=== PATIENT | female | born 1980 | race Caucasian/White ===

== ENCOUNTER 2022-07-30 23:11 | Emergency (ER) | payer OTHER, BC, SELFPAY ==
[2022-07-30 23:18] VITALS: BP 123/87; PULSE 87; RESP 16; TEMP 36.3; O2SAT 96
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
== END 2022-07-31 00:30 | disposition home or self-care (01) ==
PROVIDERS: Emergency Provider Physician Assistant
DX: S01.81XA Laceration without foreign body of other part of head, initial encounter (principal); W22.09XA Striking against other stationary object, initial encounter
CPT/HCPCS: 12011; 99283

== ENCOUNTER 2023-05-08 09:25 | Inpatient (IN) | payer BC, SELFPAY ==
[2023-05-08] VITALS (9 sets, daily range): BP systolic 109–149; BP diastolic 63–97; PULSE 79–100; RESP 14–24; TEMP 36.5–38.6; O2SAT 96–99
--- NOTE | ~2023-05-08 | CT_ITS ---
Clinical Indication: Dyspnea CT Scan of the Chest with Contrast: Technique: Contiguous sections were acquired throughout the chest after intravenous administration of 100 cc of Omnipaque 350. Dose reduction technique was used on this scan by utilizing automated expos ure control and iterative reconstruction technique. The dose-length product (DLP) was 452.55 mGy-cm. Findings: There is no evidence of any significant mediastinal, hilar or axillary lymphadenopathy. There is no f illing defect in the pulmonary arterial tree to suggest pulmonary embolus. There is no evidence of ao rtic dissection or aneurysm. No pericardial effusion. There are minimal bilateral pleural effusions, right greater than left. There is associated minimal b ibasilar atelectatic change. Images through the upper abdomen reveal no abnormalities. Impression: No evidence of pulmonary embolus, aortic dissection, or aortic aneurysm. Minimal bilateral pleural effusions, right greater than left, with associated minimal bibasilar atele ctasis. Reviewed, dictated and finalized at location M. Impression: No evidence of pulmonary embolus, aortic dissection, or aortic aneurysm. Minimal bilateral pleural effusions, right greater than left, with associated m inimal bibasilar atelectasis.
--- NOTE | ~2023-05-08 | XR_ITS ---
EXAMINATION: XR chest 2V DATE: 05/08/2023 10:53 INDICATION: Right-sided abdominal pain TECHNIQUE: PA and lateral views of the chest are obtained. COMPARISON: None available FINDINGS: The lungs are free of acute opacities. No pleural effusion or pneumothorax. The cardiomedia stinal silhouette is normal. The visualized bones and soft tissues are unremarkable. IMPRESSION: 1. No acute cardiopulmonary abnormality. Reviewed, dictated and finalized at location B.
--- NOTE | ~2023-05-08 | CT_ITS ---
EXAMINATION: CT abdomen pelvis w con INDICATION: Abdominal pain TECHNIQUE: Computed tomographic images of the abdomen and pelvis were obtained after the administrati on of 100 cc of Omnipaque 350 intravenous contrast. The dose-length product (DLP) was 630.22 mGy-cm. Automated exposure control and iterative reconstruction technique were employed. COMPARISON: None available FINDINGS: Minimal dependent atelectasis is present in the lung bases. The heart size is normal. The l iver is diffusely low in attenuation when compared with the spleen, consistent with hepatic steatosis . The spleen, pancreas, gallbladder, and adrenal glands are normal. The left kidney is unremarkable. There is mild left hydroureter with urothelial enhancement of the ureter and right renal pelvis. Ther e is patchy decreased perfusion of the right kidney compared to the left with an approximately 1.3 cm hypoattenuating lesion in the medial aspect of the right kidney lower pole. No pathologically enlarg ed abdominal or pelvic lymph nodes are identified. No free intraperitoneal gas or evidence of bowel o bstruction. An IUD is present in expected position. The appendix is normal. IMPRESSION: 1. Findings consistent with right-sided pyelonephritis and urinary tract infection. Focal area of low attenuation in the right kidney lower pole could reflect early phlegmon/abscess. Reviewed, dictated and finalized at location B. IMPRESSION: 1. Findings consistent with right-sided pyelonephritis and urinary tract infect ion. Focal area of low attenuation in the right kidney lower pole could reflect early phlegmon/abscess.
--- NOTE | ~2023-05-08 | XR_ITS ---
EXAMINATION: XR chest 1V portable DATE: 05/08/2023 17:45 INDICATION: Shortness of breath. TECHNIQUE: A single frontal view of the chest was obtained. COMPARISON: Chest 2 views 05/08/2023, CT abdomen and pelvis 05/08/2023 FINDINGS: There is no pneumonia, pleural effusion, or pneumothorax. The heart size is normal. IMPRESSION: 1. No acute cardiopulmonary disease. Reviewed, dictated and finalized at location E.
[2023-05-08 09:51] LABS: Basophils Percent Auto 0.3 % (0.2-1.2); Eosinophils Percent Auto 0.1 % (0-4.4); Hematocrit 41.6 % (37.0-47.0); Hemoglobin 14.3 g/dL (12.0-15.0); Immature Granulocyte Absolute 0.03 K/mm3 (0.00-0.031); Immature Granulocyte Percent A 0.2 % (0-0.5); Lymphocytes Absolute Auto 0.93 K/mm3 (0.9-3.2); Lymphocytes Percent Auto 7.4 % (18.3-44.2); Mean Corpuscular HGB Conc 34.4 g/dl (32-36); Mean Corpuscular Hemoglobin 33.6 pg (26-34); Mean Corpuscular Volume 97.7 fl (80-100); Mean Platelet Volume 10.5 fl (7.4-10.4); Monocytes Percent Auto 7.8 % (2.6-8.5); Neutrophils Absolute Auto 10.6 K/mm3 (1.3-6.7); Neutrophils Percent Auto 84.2 % (45.5-73.1); Platelet Count Result 209 k/mm3 (150-375); Red Blood Count 4.26 M/mm3 (4.2-5.4); Red Cell Distribution Width 12.1 % (11.5-14.5); White Blood Count 12.6 K/mm3 (4.5-10.0)
[2023-05-08 09:55] LABS: Appearance Urine Clear (Clear); Bacteria Urine 1+ /hpf; Bilirubin Urine Negative (Negative); Blood Urine Negative (Negative); Color Urine Yellow (Yellow); Glucose Urine UA Negative (Negative); Ketones Urine Negative (Negative); Leukocyte Esterase Ur 1+ LEU/UL (Negative); Nitrate Urine Negative (Negative); Non Pathogenic Casts 0-2; Protein Urine 1+ mg/dL (Negative); RBC Urine 0-2 /hpf (0-2); Specific Grav Ur 1.012 (1.001-1.035); Squamous Epithelial Cell Urine Few /hpf (Few); Urobilinogen Urine 0.2 mg/dL (<2.0); WBC Urine 21-50 /hpf; pH Urine 8.5 (5.0-9.0)
[2023-05-08 09:56] LABS: Add Urine Microscopic? YES
[2023-05-08 10:00] LABS: Lactic Acid Reflex 1.7 mmol/L (0.7-2.0)
[2023-05-08 10:01] LABS: Alanine Aminotransferase 42 U/L (6-35); Albumin Level 4.3 g/dL (3.5-5.1); Alkaline Phosphatase 80 U/L (38-126); Anion Gap 7 mmol/L (8-16); Aspartate Amino Transferase 35 U/L (14-36); Bilirubin,Total 0.7 mg/dL (0.2-1.3); Blood Urea Nitrogen 12 mg/dL (7-17); Calcium 8.9 mg/dL (8.4-10.2); Carbon Dioxide 28 mmol/L (22-30); Chloride 98 mmol/L (98-107); Estimated CRCL calculation 72 ml/min; Estimated Glomerular Filt Rate > 60; Glucose 113 mg/dL (65-110); Lipase 41 U/L (23-300); Potassium 3.4 mmol/L (3.4-5.0); Sodium 133 mmol/L (137-145)
--- NOTE | 2023-05-08 10:30 | ED.ABDPAIN ---
HPI - Abdominal Pain General Chief Complaint: Abdominal Pain <CHAIM Waddell Last Filed: 05/08/23 18:59> Stated Complaint: Fever, abd pain <Janis Branch PA-C - Last Filed: 05/08/23 18:59> Time Seen by Provider: 05/08/23 10:08 <Janis Branch PA-C - Last Filed: 05/08/23 18:59> History of Present Illness HPI narrative: 42-year-old female reports for evaluation for abdominal pain, nausea and fevers x3 days. Patient states around 6 days ago, she began developing abdominal discomfort and bloating. States 3 days ago, she developed a fever. States she went to urgent care 3 days ago and tested negative for COVID, strep and flu, and was told she likely has a viral infection and to take Tylenol. States her abdominal pain has progressively worsened and her fever has stayed consistent. States her highest temp was 102. She reports nausea but denies vomiting, diarrhea. LMP a few weeks ago. She is also reporting urinary frequency and states she feels extremely thirsty. Denies concern for STDs, vaginal discharge, chest pain or shortness of breath, cough or congestion. Last bowel movement was today and normal. <CHAIM Waddell Last Filed: 05/08/23 18:59> Related Data Home Medications: Home Medications Medication Instructions Recorded Confirmed hydrochlorothiazide 12.5 mg tablet 25 mg PO DAILY 07/31/22 05/08/23 <CHAIM Waddell Last Filed: 05/08/23 18:59> Allergies/Adverse Reactions: Allergies Allergy/AdvReac Type Severity Reaction Status Date / Time clarithromycin [From Biaxin] Allergy Hives Verified 05/08/23 09:26 Penicillins Allergy Swelling Verified 07/31/22 00:01 of Lip/Tongue/Throat Sulfa (Sulfonamide Allergy Anaphylaxis Verified 07/31/22 00:01 Antibiotics) <CHAIM Waddell Last Filed: 05/08/23 18:59> Review of Systems Review of Systems: GENERAL: Well-appearing, in no acute distress. HEAD: Normocephalic EYES: PERRLA ENT: Nares clear. Mucous membranes moist. Oropharynx without tonsillar hypertrophy exudate or other lesions. NECK: Supple. CHEST: No respiratory distress. Clear to auscultation, no adventitious breath sounds. HEART: Regular rate and rhythm. No murmur heard. Normal peripheral pulses. ABDOMEN: See HPI EXTREMITIES: Normal range of motion. No edema. SKIN: Warm, dry, no rash. NEURO: No focal deficits. Alert and oriented x3. PSYCH: Normal mood and affect. <Janis Branch PA-C - Last Filed: 05/08/23 18:59> [facility] Past Medical History Medical History: Medical History Hypertension Migraine headache <CHAIM Waddell Last Filed: 05/08/23 18:59> Surgical History Surgical History: Surgical History History of elbow surgery Repair left elbow fracture. <Janis Branch PA-C - Last Filed: 05/08/23 18:59> Family History Family History: Family History Grandparent Hypertension Kidney disease Diabetes mellitus Father Diabetes mellitus <CHAIM Waddell Last Filed: 05/08/23 18:59> Social History Social History: Social History Social History: Surrogate medical decision maker: Ivania Gallegos, grandmother. Code status: Full code. Smoking status: Never smoker Alcohol intake: never Substance use: never Substance use type: does not use Lack of Transportation: No Lack of Food: Never True Current Housing: I Have Housing Concerned About Future Housing: No Difficulty Paying Gas/Electric Bills: No Difficulty Paying for Meds: No Currently Unemployed: No Education: Decline to Answer Difficulty w/ Childcare or Family Care: No Spiritual care concerns: No <CHAIM Waddell Last Filed: 05/08/23 1
[2023-05-08] MEDS: ONDANSETRON INJ 4 MG/2 ML VIAL IV PUSH (10:40)
[2023-05-08] MEDS: ACETAMINOPHEN 500 MG TABLET 1000 MG PO (10:40)
[2023-05-08] MEDS: SODIUM CHLORIDE 0.9% IV 2,500 ML/1,000 ML BAG 999 ML IV CONT ×3 (10:45→13:49)
[2023-05-08 10:50] LABS: CRP 18.2 mg/dL (<1.0)
[2023-05-08] MEDS: SODIUM CHLORIDE 0.9% IV 500 ML 999 ML (11:21)
[2023-05-08 12:08] LABS: Influenza A QL RT-PCR Negative (Negative); Influenza B QL RT-PCR Negative (Negative); SARS-CoV-2 RNA PCR Negative (Negative)
[2023-05-08] MEDS: KETOROLAC 30 MG/ML VIAL (*BKC) IV PUSH ×2 (12:15→17:14)
--- NOTE | 2023-05-08 12:25 | PC.NURSE ---
Pt had total of 2500ml of NS infused per MD order.
--- NOTE | 2023-05-08 12:57 | ADMGEN ---
This patient, Kaylynn Bobby, was admitted to [facility] Surg Room 306-02 at 1240. Report per LAN Reed. Patient/family oriented to hospital policies and general routines including ID bracelet, bed and alarms, visiting hours, pain management, procedures, bathroom and other care routines, personal items, smoking policy, room service/diet, and visiting hours. Information on how to activate the Rapid Response Team has been discussed. Patient/Family are encouraged to report perceived risks to care and to ask questions if they do not understand what they are told or what they should do.
--- NOTE | 2023-05-08 13:20 | PM.IMHP ---
H&P: HPI History of Present Illness Date/Time: 05/08/23 13:20 Chief Complaint: Fever and abdominal pain. Narrative: This is a 42-year-old female with hypertension who presented to the emergency department via private vehicle from home for evaluation of abdominal pain and fever. The patient provides the following history. About 6 days ago she developed bloating and generalized abdominal discomfort and 3 days ago she started to run a fever. She was seen in urgent care at that time and tested negative for COVID, influenza, and strep. She was told that she likely had a viral infection and was told to take acetaminophen as needed for her symptoms. Unfortunately she continues to run a fever with a T-max of 102? and the pain in her abdomen has gotten progressively worse. It seems to be situated in the right flank and diffusely across the back. It is worse with palpation and movement. Associated symptoms include nausea but no vomiting. She has some urinary frequency but denies dysuria, and urgency. No history of gallbladder disease or peptic ulcers. She has not had any recent falls or trauma. She denies sick contacts. In the ED: Temperature was 101.5? F on arrival. Blood pressures have been stable and she has been in a sinus rhythm. Labs were significant for a WBC count of 12.6, sodium 133, lactic acid 1.7, CRP 18.2, lipase 41. Urine was positive for 1+ leukocyte esterase, 21 to 50 WBC, and 1+ bacteria. CT of the abdomen and pelvis showed findings consistent with right-sided pyelonephritis and UTI with a focal area of low attenuation the right kidney lower pole which could reflect early phlegmon/abscess. Chest x-ray showed no acute cardiopulmonary abnormality. Interventions in the ED include a fluid bolus of 2500 mL, 4 mg IV ondansetron, 30 mg IV ketorolac, and 1 g IV ceftriaxone. She is being admitted in this setting for further IV antibiotics and urology consultation. At about 17:30 I received a call from the patient's nurse. The patient reported to her sudden onset of shortness of breath and feeling as though she could not taken enough air associated with mid chest discomfort which she has a hard time describing. Patient was evaluated at bedside and vital signs at that time were as follows: Blood pressure 139/86, pulse 91, respiratory rate 16, SpO2 96% room air, temperature 99.1?. The patient was nontoxic in appearance but did seem a bit anxious. Heart was regular rate and rhythm. Lung sounds were diminished at the right base with faint crackes but were otherwise clear to auscultation. Stat chest x-ray did not show any acute findings. Fluids were discontinued as she had already received a total of 3050 mL. EKG, troponin, BNP, and D-dimer ordered. Review of Systems Review of Systems: Twelve systems were reviewed and are negative except for as per HPI. [facility] Past Medical History Medical History Hypertension Migraine headache Surgical History Surgical History History of elbow surgery Repair left elbow fracture. Family History Family History Grandparent Hypertension Kidney disease Diabetes mellitus Father Diabetes mellitus Social History Social History Social History: Surrogate medical decision maker: Ivania Gallegos, grandmother. Code status: Full code. Smoking status: Never smoker Alcohol intake: never Substance use: never Substance use type: does not use Lack of Transportation: No Lack of Food: Never True Current Housing: I Have Housing Concerned About Future Housing: No Difficulty Paying Gas/Electric Bills: No Difficulty Paying for Meds: No Currently Unemployed: No Education: Decline to Answer Difficulty w/ Childcare or Family Care: No Spiritual care concerns: No Meds
[2023-05-08] MEDS: SODIUM CHLORIDE 0.9% IV 1,000 ML 125 ML IV CONT (14:00)
--- NOTE | 2023-05-08 16:24 | WPDURCON ---
Assessment and Plan Assessment and plan (1) Pyelonephritis of right kidney: Code(s): N12 - Tubulo-interstitial nephritis, not specified as acute or chronic Status: Acute Assessment and Plan: If patient worsens or runs a fever ok to repeat a CT, if an abscess develops, she should have IR consulted to drain the abscess. No further evaluation by Urology, not a urologic consult as this is normallly handled by IR. Continue IV antibiotics. Urology Consult Note HPI Date Seen: 05/08/23 Time Seen: 12:00 Requesting Physician: Liliya Fuentes MD Primary Care Provider: PHYSICIAN NOT ON STAFF Consult Narrative Reason for consult: Pyelonephritis/Abscess Narrative: Kaylynn Bobby is a 42 year old female who presented to the ER today for worsneing flank pain, fever and nausea that started last Monday and started as mild pain in the right flank and got a little bit better after being seen in on last week. She had a fever and abdominal pain at that time as well. She then notes around 5pm last night that the fever, right flank pain and nausea returned and worsened throughout the night causing her to go to the ER. She denies chronic UTI's, stones or any other history of urologic problems. CT scan today results in findings consistent with right-sided pyelonephritis and urinary tract infection. Focal area of low attenuation in the right kidney lower pole could reflect early phlegmon/abscess. Creatinine is 0.90, WBC is 12.6 she is afebrile currently. Urine and Blood cultures are pending. Review of Systems Cardiovascular: Cardiovascular: Denies chest pain Respiratory: Respiratory: Reports no additional respiratory complaints Gastrointestinal: Gastrointestinal: Reports abdominal pain, Reports nausea and Denies vomiting Genitourinary: Genitourinary: Denies hematuria, Denies dysuria, Reports pelvic pain, Reports flank pain, Denies urinary incontinence, Denies urinary hesitancy and Denies urinary urgency [facility] Past Medical History Medical History Hypertension Migraine headache Surgical History Surgical History History of elbow surgery Repair left elbow fracture. Family History Family History Grandparent Hypertension Kidney disease Diabetes mellitus Father Diabetes mellitus Social History Social History Social History: Surrogate medical decision maker: Ivania Gallegos, grandmother. Code status: Full code. Smoking status: Never smoker Alcohol intake: never Substance use: never Substance use type: does not use Lack of Transportation: No Lack of Food: Never True Current Housing: I Have Housing Concerned About Future Housing: No Difficulty Paying Gas/Electric Bills: No Difficulty Paying for Meds: No Currently Unemployed: No Education: Decline to Answer Difficulty w/ Childcare or Family Care: No Spiritual care concerns: No Meds Home Medications and Allergies Home Medications Medication Instructions Recorded Confirmed Type hydrochlorothiazide 12.5 mg tablet 25 mg PO DAILY 07/31/22 05/08/23 History Allergies Allergy/AdvReac Type Severity Reaction Status Date / Time clarithromycin [From Biaxin] Allergy Hives Verified 05/08/23 09:26 Penicillins Allergy Swelling Verified 07/31/22 00:01 of Lip/Tongue/Throat Sulfa (Sulfonamide Allergy Anaphylaxis Verified 07/31/22 00:01 Antibiotics) Vital Signs Vital Signs - 24 hr 05/08/23 09:30 05/08/23 09:40 05/08/23 12:11 Temperature 101.5 F H Pulse Rate 100 97 87 Respiratory Rate 19 24 H 20 Blood Pressure 149/97 H 124/86 109/69 Pulse Oximetry 99 98 97 Oxygen Delivery Room Air 05/08/23 12:19 05/08/23 14:00 Temperature 98.1 F 97.7 F Pulse Rate 81 79 Res
--- NOTE | 2023-05-08 17:34 | ECG_ITS ---
Measurements Intervals [place] Rate: 95 P: 46 FL: 166 QRS: -1 QRSD: 97 T: -17 QT: 355 QTc: 447 Interpretive Statements SINUS RHYTHM LOW QRS VOLTAGE IN PRECORDIAL LEADS BORDERLINE T WAVE ABNORMALITY- ANT/INF LEADS BASELINE ARTIFACT- II, III, AVR, AVF BORDERLINE ECG NO PREVIOUS ECG AVAILABLE FOR COMPARISON Electronically Signed On 05-09-2023 6:23:16 CDT by Paulie Shaw D.O.
[2023-05-08] MEDS: ALPRAZolam (*CRX) 0.25 MG TABLET 0.125 MG PO (18:17)
[2023-05-08 19:37] LABS: D Dimer 0.57 ug/mL (<0.48)
[2023-05-08 19:43] LABS: NT Pro B Type Natriuretic Pept 439 pg/mL (19.9-100); Troponin I < 0.012 ng/mL (0.000-0.034)
[2023-05-08] MEDS: MORPHINE SULFATE (*CRX) 2 MG/ML INJ IV PUSH (19:54)
[2023-05-08] MEDS: ACETAMINOPHEN 325 MG TABLET 650 MG PO (21:38)
[2023-05-08] MEDS: IBUPROFEN 400 MG TABLET 800 MG PO (23:14)
[2023-05-09] VITALS (14 sets, daily range): BP systolic 108–139; BP diastolic 58–81; PULSE 70–99; RESP 16–18; TEMP 36.3–39.4; O2SAT 93–97
[2023-05-09] MEDS: ALBUTEROL SULFATE (*SP) AEROSOL 1 PUFF 2 PUFF INHALATION (00:23)
[2023-05-09] MEDS: MEROPENEM 1 GM/NS 100 ML 1 GM/100 ML BAG IVPB ×3 (00:37→16:07)
[2023-05-09 06:37] LABS: Hematocrit 35.8 % (37.0-47.0); Hemoglobin 11.9 g/dL (12.0-15.0); Mean Corpuscular HGB Conc 33.2 g/dl (32-36); Mean Corpuscular Hemoglobin 33.6 pg (26-34); Mean Corpuscular Volume 101.1 fl (80-100); Mean Platelet Volume 10.7 fl (7.4-10.4); Platelet Count Result 175 k/mm3 (150-375); Red Blood Count 3.54 M/mm3 (4.2-5.4); Red Cell Distribution Width 12.1 % (11.5-14.5); White Blood Count 12.3 K/mm3 (4.5-10.0)
[2023-05-09 06:50] LABS: Anion Gap 7 mmol/L (8-16); Blood Urea Nitrogen 8 mg/dL (7-17); Calcium 7.6 mg/dL (8.4-10.2); Carbon Dioxide 23 mmol/L (22-30); Chloride 106 mmol/L (98-107); Estimated CRCL calculation 91 ml/min; Estimated Glomerular Filt Rate > 60; Glucose 94 mg/dL (65-110); Potassium 3.4 mmol/L (3.4-5.0); Sodium 136 mmol/L (137-145)
[2023-05-09] MEDS: ACETAMINOPHEN 325 MG TABLET 650 MG PO ×3 (09:31→22:09)
--- NOTE | 2023-05-09 11:17 | PM.IMPN ---
Progress Note: A&P Assessment and Plan (1) Sepsis: Qualifiers: Sepsis acute organ dysfunction status: without acute organ dysfunction Sepsis type: sepsis due to unspecified organism Qualified Code(s): A41.9 - Sepsis, unspecified organism Code(s): A41.9 - Sepsis, unspecified organism Status: Acute Assessment and Plan: Patient now has small pleural effusion status post aggressive IV fluid hydration. Patient on ceftriaxone for right pyelonephritis with possible developing abscess. White count remains 12.3 this morning. (2) Pyelonephritis of right kidney: Code(s): N12 - Tubulo-interstitial nephritis, not specified as acute or chronic Status: Acute Assessment and Plan: See 1. (3) Urinary tract infection: Code(s): N39.0 - Urinary tract infection, site not specified Status: Acute Assessment and Plan: See 1. (4) Hypertension: Code(s): I10 - Essential (primary) hypertension Status: Acute Assessment and Plan: Blood pressure on the softer side, home HCTZ held. Blood pressure reviewed on 05/09 (5) Shortness of breath: Code(s): R06.02 - Shortness of breath Status: Acute Assessment and Plan: Status post IV fluid resuscitation for sepsis. CTA completed today showing small bilateral pleural effusions mild atelectasis. (6) Anxiety about health: Code(s): F41.8 - Other specified anxiety disorders Status: Acute Assessment and Plan: very low-dose alprazolam p.r.n. t.i.d. Plan IV meropenum for UTI/pyelonephritis with possible abscess formation CTA negative for PE, small pleural effusions noted. Incentive spirometer ordered Time Spent With Patient Time with patient: 25 - 35 minutes Subjective Date/time seen: 05/09/23 11:17 Interval history: Patient reports that she still has some tightness in her chest when she takes a deep breath but no wheezing present. She reports this is improved over last night. Patient notes fever yesterday but none today. She still has right-sided flank pain and right CVA tenderness on examination. Review of Systems Review of Systems: Twelve systems were reviewed and are negative except for as per HPI. Exam Narrative: General: Well-developed, nontoxic-appearing female sitting up in bed. Weight: 80.1 kg. BMI: 33.1. HEENT: PERRL, EOMI. Sclera anicteric. Oral mucosa moist. Neck: Supple. No JVD Respiratory: Lungs are clear to auscultation bilaterally. Cardiovascular: Regular rate and rhythm with S1-S2. Gastrointestinal: Abdomen is soft and nondistended with positive bowel sounds. She is tender to palpation over the right flank with right-sided CVA tenderness. No guarding or rebound tenderness. Skin: Warm and dry. No rash or lesions on limited exam. Extremities: No cyanosis, clubbing, or edema. Radial and pedal pulses intact. No palpable knots or cords. Neurological: Alert. Cranial nerves 2-12 are grossly intact. No gross focal deficits to casual conversation. Psychiatric: Pleasant and cooperative with normal mood and affect. Judgment and insight intact. Objective Data Vital Signs Vital Signs: Vital Signs - 24 hr 05/08/23 12:11 05/08/23 12:19 05/08/23 14:00 Temperature 36.7 C 36.5 C Pulse Rate 87 81 79 Respiratory Rate 20 20 14 Blood Pressure 109/69 113/71 110/63 Pulse Oximetry 97 97 96 Oxygen Delivery 05/08/23 17:22 05/08/23 21:38 05/08/23 22:40 Temperature 37.3 C 38.3 C H 38.2 C H Pulse Rate 91 Respiratory Rate 16 Blood Pressure 139/86 Pulse Oximetry 96 Oxygen Delivery 05/08/23 23:14 05/09/23 00:23 05/08/23 20:00 Temperature 38.2 C H Pulse Rate 82 Respiratory Rate 18 Blood Pressure Pulse Oximetry Oxygen Delivery Room Air 05/09/23 00:40 05/09/23 00:30 05/09/23 06:00 Temperature 37.5 C 37.5 C 36.3 C L Pulse Rate 97 70 Respiratory Rate 18 16 Blood Pressure 108/69 113/58 L Pulse Oximetry 95
[2023-05-09] MEDS: HYDROcodone/acetaminophen (*CRX) 5-325 MG TABLET 1 TAB PO ×2 (12:28→19:35)
[2023-05-09] MEDS: ALPRAZolam (*CRX) 0.125 MG TABLET PO ×3 (13:39→22:10)
[2023-05-09] MEDS: MORPHINE SULFATE (*CRX) 2 MG/ML INJ IV PUSH (17:02)
--- NOTE | 2023-05-09 17:15 | PC.NURSE ---
1715- ice bags applied to neck,arm pits and groin.
[2023-05-10] VITALS (8 sets, daily range): BP systolic 119–123; BP diastolic 75–80; PULSE 71–92; RESP 21–22; TEMP 36.9–38.4; O2SAT 93–98
[2023-05-10] MEDS: MEROPENEM 1 GM/NS 100 ML 1 GM/100 ML BAG IVPB ×2 (00:10→08:07)
[2023-05-10] MEDS: ACETAMINOPHEN 325 MG TABLET 650 MG PO ×2 (05:07→19:54)
[2023-05-10 07:13] LABS: Basophils Percent Auto 0.3 % (0.2-1.2); Eosinophils Percent Auto 0.4 % (0-4.4); Hematocrit 34.2 % (37.0-47.0); Hemoglobin 11.4 g/dL (12.0-15.0); Immature Granulocyte Absolute 0.08 K/mm3 (0.00-0.031); Immature Granulocyte Percent A 0.7 % (0-0.5); Lymphocytes Absolute Auto 1.08 K/mm3 (0.9-3.2); Lymphocytes Percent Auto 9.5 % (18.3-44.2); Mean Corpuscular HGB Conc 33.3 g/dl (32-36); Mean Corpuscular Volume 99.1 fl (80-100); Mean Platelet Volume 11.1 fl (7.4-10.4); Monocytes Absolute Auto 0.8 K/mm3 (0.1-0.6); Neutrophils Absolute Auto 9.3 K/mm3 (1.3-6.7); Neutrophils Percent Auto 82.1 % (45.5-73.1); Platelet Count Result 194 k/mm3 (150-375); Red Blood Count 3.45 M/mm3 (4.2-5.4); Red Cell Distribution Width 12.1 % (11.5-14.5); White Blood Count 11.4 K/mm3 (4.5-10.0)
[2023-05-10 07:25] LABS: Alanine Aminotransferase 33 U/L (6-35); Alkaline Phosphatase 93 U/L (38-126); Anion Gap 7 mmol/L (8-16); Aspartate Amino Transferase 24 U/L (14-36); Bilirubin,Total 0.4 mg/dL (0.2-1.3); Blood Urea Nitrogen 8 mg/dL (7-17); Calcium 7.9 mg/dL (8.4-10.2); Carbon Dioxide 25 mmol/L (22-30); Chloride 102 mmol/L (98-107); Estimated CRCL calculation 81 ml/min; Estimated Glomerular Filt Rate > 60; Glucose 97 mg/dL (65-110); Potassium 3.5 mmol/L (3.4-5.0); Sodium 134 mmol/L (137-145)
--- NOTE | 2023-05-10 08:42 | PM.IMPN ---
Progress Note: A&P Assessment and Plan (1) Systemic inflammatory response syndrome: Code(s): R65.10 - Systemic inflammatory response syndrome (SIRS) of non-infectious origin without acute organ dysfunction Status: Acute Assessment and Plan: WBC 12.3->11.4 Febrile 101.4 at 0500 today Acetaminophen prn for fever BP and HR WNL (2) Pyelonephritis of right kidney: Code(s): N12 - Tubulo-interstitial nephritis, not specified as acute or chronic Status: Acute Assessment and Plan: CT abdomen pelvis shows right sided pyelonephritis and UTI. Possible focal area of low attenuation in the right kidney lower pole could reflect early phlegmon/abscess. Changed IV antibiotics from Meropenem to Levaquin after discussing case with ID pharmacist. May need to re-scan if she continues to fever in the next 24 hours. May need source control if abscess is large enough to drain. (3) Urinary tract infection: Code(s): N39.0 - Urinary tract infection, site not specified Status: Acute Assessment and Plan: U/A leukocyte esterase +1, WBC 21-50, Urine bacteria +1 Urine culture with gram negative bacilli isolated. Blood cultures with NGTD (4) Hypertension: Code(s): I10 - Essential (primary) hypertension Status: Acute Assessment and Plan: Takes daily hydrochlorothiazide at home Currently holding in setting of SIRS with potential for sepsis development Blood pressures reviewed and are stable. (5) Shortness of breath: Code(s): R06.02 - Shortness of breath Status: Acute Assessment and Plan: S/P IV fluid resuscitation CTA shows small bilateral pleural effusions with mild atelectasis. On room air 92% Subjective Date/time seen: 05/10/23 08:42 Interval history: HPI obtained from chart, This is a 42-year-old female with hypertension who presented to the emergency department via private vehicle from home for evaluation of abdominal pain and fever. The patient provides the following history. About 6 days ago she developed bloating and generalized abdominal discomfort and 3 days ago she started to run a fever.? She was seen in urgent care at that time and tested negative for COVID, influenza, and strep. She was told that she likely had a viral infection and was told to take acetaminophen as needed for her symptoms. Unfortunately she continues to run a fever with a T-max of 102? and the pain in her abdomen has gotten progressively worse. It seems to be situated in the right flank and diffusely across the back. It is worse with palpation and movement. Associated symptoms include nausea but no vomiting. She has some urinary frequency but denies dysuria, and urgency. No history of gallbladder disease or peptic ulcers. She has not had any recent falls or trauma. She denies sick contacts. In the ED: Temperature was 101.5? F on arrival. Blood pressures have been stable and she has been in a sinus rhythm. Labs were significant for a WBC count of 12.6, sodium 133, lactic acid 1.7, CRP 18.2, lipase 41. Urine was positive for 1+ leukocyte esterase, 21 to 50 WBC, and 1+ bacteria. CT of the abdomen and pelvis showed findings consistent with right-sided pyelonephritis and UTI with a focal area of low attenuation the right kidney lower pole which could reflect early phlegmon/abscess. Chest x-ray showed no acute cardiopulmonary abnormality. Interventions in the ED include a fluid bolus of 2500 mL, 4 mg IV ondansetron, 30 mg IV ketorolac, and 1 g IV ceftriaxone. She is being admitted in this setting for further IV antibiotics and urology consultation. Interval history: 05/10: Overnight fever of 101.1. She also required oxygen for desaturation in the 80's. Suspect this is related to atelectasis as patient has been in bed dependent, has poor effort on the IS, and diminished lung sounds. Urine susceptibilities are back. Case discussed with ID pharmacist and Di has better abscess penetr
[2023-05-10] MEDS: ALPRAZolam (*CRX) 0.125 MG TABLET PO ×2 (10:49→19:54)
[2023-05-10] MEDS: HYDROcodone/acetaminophen (*CRX) 5-325 MG TABLET 1 TAB PO ×2 (10:49→16:20)
[2023-05-10] MEDS: levoFLOXacin 750 MG/D5W 150 ML 750 MG/150 ML BAG 100 MG IVPB (14:40)
[2023-05-11] VITALS: PULSE 72; RESP 16; O2SAT 98
[2023-05-11] MEDS: HYDROcodone/acetaminophen (*CRX) 5-325 MG TABLET 1 TAB PO ×2 (03:07→09:43)
[2023-05-11 03:11] VITALS: TEMP 36.5
[2023-05-11 05:56] VITALS: BP 122/81; PULSE 68; RESP 22; TEMP 36; O2SAT 97
[2023-05-11 07:12] LABS: Basophils Percent Auto 0.5 % (0.2-1.2); Eosinophils Absolute Auto 0.1 K/mm3 (0-0.3); Eosinophils Percent Auto 1.5 % (0-4.4); Hematocrit 35.1 % (37.0-47.0); Hemoglobin 11.8 g/dL (12.0-15.0); Immature Granulocyte Absolute 0.04 K/mm3 (0.00-0.031); Immature Granulocyte Percent A 0.5 % (0-0.5); Lymphocytes Absolute Auto 1.41 K/mm3 (0.9-3.2); Mean Corpuscular HGB Conc 33.6 g/dl (32-36); Mean Corpuscular Hemoglobin 32.8 pg (26-34); Mean Corpuscular Volume 97.5 fl (80-100); Mean Platelet Volume 10.3 fl (7.4-10.4); Monocytes Absolute Auto 0.6 K/mm3 (0.1-0.6); Monocytes Percent Auto 6.9 % (2.6-8.5); Neutrophils Absolute Auto 6.6 K/mm3 (1.3-6.7); Neutrophils Percent Auto 74.6 % (45.5-73.1); Platelet Count Result 253 k/mm3 (150-375); Red Cell Distribution Width 11.8 % (11.5-14.5); White Blood Count 8.8 K/mm3 (4.5-10.0)
[2023-05-11 07:29] LABS: Alanine Aminotransferase 31 U/L (6-35); Albumin Level 3.1 g/dL (3.5-5.1); Alkaline Phosphatase 69 U/L (38-126); Anion Gap 5 mmol/L (8-16); Aspartate Amino Transferase 23 U/L (14-36); Bilirubin,Total 0.4 mg/dL (0.2-1.3); Blood Urea Nitrogen 12 mg/dL (7-17); Calcium 8.1 mg/dL (8.4-10.2); Carbon Dioxide 27 mmol/L (22-30); Chloride 105 mmol/L (98-107); Estimated CRCL calculation 81 ml/min; Estimated Glomerular Filt Rate > 60; Glucose 94 mg/dL (65-110); Magnesium 2.5 mg/dL (1.6-2.3); Sodium 137 mmol/L (137-145)
[2023-05-11 08:00] VITALS: O2SAT 94
--- NOTE | 2023-05-11 08:05 | P.PNIM_ITS ---
Progress Note: A&P Assessment and Plan (1) Systemic inflammatory response syndrome: Code(s): R65.10 - Systemic inflammatory response syndrome (SIRS) of non-infectious origin without acute organ dysfunction Status: Acute Assessment and Plan: WBC 12.3->11.4 Febrile 101.4 at 0500 today Acetaminophen prn for fever BP and HR WNL (2) Pyelonephritis of right kidney: Code(s): N12 - Tubulo-interstitial nephritis, not specified as acute or chronic Status: Acute Assessment and Plan: CT abdomen pelvis shows right sided pyelonephritis and UTI. Possible focal area of low attenuation in the right kidney lower pole could reflect early phlegmon/abscess. Changed IV antibiotics from Meropenem to Levaquin after discussing case with ID pharmacist. May need to re-scan if she continues to fever in the next 24 hours. May need source control if abscess is large enough to drain. (3) Urinary tract infection: Code(s): N39.0 - Urinary tract infection, site not specified Status: Acute Assessment and Plan: U/A leukocyte esterase +1, WBC 21-50, Urine bacteria +1 Urine culture with gram negative bacilli isolated. Blood cultures with NGTD (4) Hypertension: Code(s): I10 - Essential (primary) hypertension Status: Acute Assessment and Plan: Takes daily hydrochlorothiazide at home Currently holding in setting of SIRS with potential for sepsis development Blood pressures reviewed and are stable. (5) Shortness of breath: Code(s): R06.02 - Shortness of breath Status: Acute Assessment and Plan: S/P IV fluid resuscitation CTA shows small bilateral pleural effusions with mild atelectasis. On room air 92% Subjective Date/time seen: 05/11/23 08:05 Interval history: HPI obtained from chart, This is a 42-year-old female with hypertension who presented to the emergency department via private vehicle from home for evaluation of abdominal pain and fever. The patient provides the following history. About 6 days ago she developed bloating and generalized abdominal discomfort and 3 days ago she started to run a fever.? She was seen in urgent care at that time and tested negative for COVID, influenza, and strep. She was told that she likely had a viral infection and was told to take acetaminophen as needed for her symptoms. Unfortunately she continues to run a fever with a T-max of 102? and the pain in her abdomen has gotten progressively worse. It seems to be situated in the right flank and diffusely across the back. It is worse with palpation and movement. Associated symptoms include nausea but no vomiting. She has some urinary frequency but denies dysuria, and urgency. No history of gallbladder disease or peptic ulcers. She has not had any recent falls or trauma. She denies sick contacts. In the ED: Temperature was 101.5? F on arrival. Blood pressures have been stable and she has been in a sinus rhythm. Labs were significant for a WBC count of 12.6, sodium 133, lactic acid 1.7, CRP 18.2, lipase 41. Urine was positive for 1+ leukocyte esterase, 21 to 50 WBC, and 1+ bacteria. CT of the abdomen and pelvis showed findings consistent with right-sided pyelonephritis and UTI with a focal area of low attenuation the right kidney lower pole which could reflect early phlegmon/abscess. Chest x-ray showed no acute cardiopulmonary abnormality. Interventions in the ED include a fluid bolus of 2500 mL, 4 mg IV ondansetron, 30 mg IV ketorolac, and 1 g IV ceftriaxone. She is being admitted in this setting for further IV antibiotics and urology consultation. Interval history:
--- NOTE | 2023-05-11 11:33 | PM.DS ---
DS: Admitting Diagnosis Discharge Date 05/11/23 Admitting Diagnosis pyelonephritis DS: Discharge Diagnosis Discharge Diagnosis (1) Systemic inflammatory response syndrome: Code(s): R65.10 - Systemic inflammatory response syndrome (SIRS) of non-infectious origin without acute organ dysfunction Status: Acute Assessment and Plan: WBC 12.3->11.4->8.8 today 24 hours without fever Acetaminophen prn for fever BP and HR WNL (2) Pyelonephritis of right kidney: Code(s): N12 - Tubulo-interstitial nephritis, not specified as acute or chronic Status: Acute Assessment and Plan: CT abdomen pelvis shows right sided pyelonephritis and UTI. Possible focal area of low attenuation in the right kidney lower pole could reflect early phlegmon/abscess. Changed IV antibiotics from Meropenem to Levaquin after discussing case with ID pharmacist. May need to re-scan if she continues to fever in the next 24 hours. May need source control if abscess is large enough to drain. (3) Urinary tract infection: Code(s): N39.0 - Urinary tract infection, site not specified Status: Acute Assessment and Plan: U/A leukocyte esterase +1, WBC 21-50, Urine bacteria +1 Urine culture with gram negative bacilli isolated. Blood cultures with NGTD (4) Hypertension: Code(s): I10 - Essential (primary) hypertension Status: Acute Assessment and Plan: Takes daily hydrochlorothiazide at home Currently holding in setting of SIRS with potential for sepsis development Blood pressures reviewed and are stable. (5) Shortness of breath: Code(s): R06.02 - Shortness of breath Status: Acute Assessment and Plan: S/P IV fluid resuscitation CTA shows small bilateral pleural effusions with mild atelectasis. On room air 92% DS: Summary Hospital Course Hospital Course: HPI obtained from chart, This is a 42-year-old female with hypertension who presented to the emergency department via private vehicle from home for evaluation of abdominal pain and fever. The patient provides the following history. About 6 days ago she developed bloating and generalized abdominal discomfort and 3 days ago she started to run a fever.? She was seen in urgent care at that time and tested negative for COVID, influenza, and strep. She was told that she likely had a viral infection and was told to take acetaminophen as needed for her symptoms. Unfortunately she continues to run a fever with a T-max of 102? and the pain in her abdomen has gotten progressively worse. It seems to be situated in the right flank and diffusely across the back. It is worse with palpation and movement. Associated symptoms include nausea but no vomiting. She has some urinary frequency but denies dysuria, and urgency. No history of gallbladder disease or peptic ulcers. She has not had any recent falls or trauma. She denies sick contacts. In the ED: Temperature was 101.5? F on arrival. Blood pressures have been stable and she has been in a sinus rhythm. Labs were significant for a WBC count of 12.6, sodium 133, lactic acid 1.7, CRP 18.2, lipase 41. Urine was positive for 1+ leukocyte esterase, 21 to 50 WBC, and 1+ bacteria. CT of the abdomen and pelvis showed findings consistent with right-sided pyelonephritis and UTI with a focal area of low attenuation the right kidney lower pole which could reflect early phlegmon/abscess. Chest x-ray showed no acute cardiopulmonary abnormality. Interventions in the ED include a fluid bolus of 2500 mL, 4 mg IV ondansetron, 30 mg IV ketorolac, and 1 g IV ceftriaxone. She is being admitted in this setting for further IV antibiotics and urology consultation. Interval history: 05/10: Overnight fever of 101.1. She also required oxygen for desaturation in the 80's. Suspect this is related to atelectasis as patient has been in bed dependent, has poor effort on the IS, and diminished lung sounds. Urine susceptibilities are back. Case di
[2023-05-11] MEDS: levoFLOXacin 750 MG/D5W 150 ML 750 MG/150 ML BAG 100 MG IVPB ×2 (12:03→12:14)
[2023-05-11] MEDS: levoFLOXacin 750 MG TABLET PO (12:33)
== END 2023-05-11 13:01 | disposition home or self-care (01) | DRG 690 ==
LOC: ANHED 11:07 → ANH3MEDSUR 12:23
PROVIDERS: Nurse Practitioner; Physician Assistant; Preventive Medicine Aerospace Medicine; Admitting Provider Family Medicine; Emergency Provider Physician Assistant; Visit Provider Nurse Practitioner Acute Care
DX: N10 Acute pyelonephritis (principal); R65.10 Systemic inflammatory response syndrome (SIRS) of non-infectious origin without acute organ dysfunction; J98.11 Atelectasis; N15.1 Renal and perinephric abscess; I10 Essential (primary) hypertension; Z20.822 Contact with and (suspected) exposure to COVID-19; F41.8 Other specified anxiety disorders
CPT/HCPCS: 36415; 71045; 71046; 71275; 74177; 80048; 80053; 81001; 81025; 83605; 83690; 83735; 83880; 84484; 85025; 85027; 85380; 86140; 87040; 87077; 87081; 87086; 87088; 87186; 87636; 93005; 94640; 96361; 96365; 96366; 96367; 96375; 96376; 99285; A9270; G0378; J0696; J1885; J1956; J2185; J2270; J2405; J7030; J7040; Q9967